=== PATIENT | male | born 1980 | race Caucasian/White ===

== ENCOUNTER 2023-03-19 10:44 | Emergency (ER) | payer SELFPAY ==
[2023-03-19 10:56] VITALS: BP 158/107; PULSE 80; RESP 20; TEMP 36.3; O2SAT 96
--- NOTE | 2023-03-19 11:18 | ED.GENADULT ---
HPI - General Adult General Chief complaint: Sore Throat Stated complaint: trouble breathing, swollen throat Time Seen by Provider: 03/19/23 11:01 History of Present Illness HPI narrative: Pt interpreting. Pt's reports early this AM around 0400, pt began c/o swelling in throat and sore throat. Pt stated she tried to get him to come to the ER but he did not want to at that time due to ETOH on board and being tired . Pt's states pt's throat appears red and swollen . 42-year-old man presenting to the emergency department complaint of sore throat. It hurts to swallow. Is able to manage secretions. Having trouble opening his mouth due to pain. He apparently woke very early this morning panicking with difficulty breathing; was particularly hard lay flat at that time. He had had number of drinks at that point. She had difficulty visualizing his throat at night but this morning some more swelling and redness was noted about the tonsils and was concerned. Has not had a fever. No rash. No particular exposures. He does not sound as though there was prodrome, fever, cough or cold symptoms. Related Data Previous Rx's Medication Instructions Recorded famotidine 20 mg tablet 20 mg PO BID #60 tabs 03/19/23 Allergies Allergy/AdvReac Type Severity Reaction Status Date / Time No Known Drug Allergies Allergy Verified 03/19/23 11:00 Review of Systems Status of ROS: Reports: 6 or more systems reviewed and unremarkable except as noted in History and below PFSH PFS Social History Smoking Status: Never smoker How often do you have a drink containing alcohol: 2-3 times a week How often do you have six or more drinks on one occasion: Never AUDIT-C Alcohol total score: 3 Non-prescribed substance use: denies use Exam Narrative: Exam Narrative: Pleasant. Seems a little distant or distracted. Cranial nerves 2-12 intact. GCS 15. Breathing easily. Speaking with somewhat clenched mouth. Carefully casually groomed. Looks for/hours actually. Oropharynx is moist. Little thick in the posterior oropharynx. Demonstrating trismus. With tongue depressor able to visualize moderately erythematous without exudate moderately enlarged tonsils right greater than left. Uvula seems somewhat boggy but not particularly large. A little longer. Partially septate. Is with full adenoids to palpation. Equivalent tenderness though he says. Neck otherwise is supple. Lungs are clear. There is no stridor. Heart is in regular rate and rhythm. Const: Vital Signs, click to edit/add: Vital Signs - 24 hr 03/19/23 10:56 03/19/23 11:26 03/19/23 11:52 Temperature 97.3 F L Pulse Rate [Right Pulse Oximeter] 80 81 Respiratory Rate 20 Blood Pressure [Ri ght Upper Arm] 158/107 H Pulse Oximetry 96 96 96 Oxygen Delivery Me thod Room Air Room Air Documenting provider has reviewed patient's vital signs: yes Course Vital Signs Vital signs: Initial Vital Signs Temperature 97.3 F L 03/19/23 10:56 Temperature Source Temporal Artery Scan 03/19/23 10:56 Pulse Rate 80 03/19/23 10:56 Respiratory Rate 20 03/19/23 10:56 Blood Pressure 158/107 H 03/19/23 10:56 Blood Pressure Mean 124 H 03/19/23 10:56 Blood Pressure Position Sitting 03/19/23 10:56 Pulse Oximetry 96 03/19/23 10:56 Oxygen Delivery Method Room Air 03/19/23 10:56 Vital Signs Temperature 97.3 F L 03/19/23 10:56 Pulse Rate 80 03/19/23 10:56 Respiratory Rate 20 03/19/23 10:56 Blood Pressure 158/107 H 03/19/23 10:56 Pulse Oximetry 96 03/19/23 10:56 Oxygen Delivery Method Room Air 03/19/23 10:56 Temperature 97.3 F L 03/19/23 10:56 Pulse Rate 74 03/19/23 13:11 Respiratory Rate 16 03/19/23 13:11 Blood Pressure 156/98 H 03/19/23 13:11 Pulse Oximetry 98 03/19/23 13:11 Oxygen Delivery Method Room Air 03/19/23 13:11 Medications Administered Medications: Discontinued Medications Generic Name Dose Route Start Last Admin Trade Name Freq PRN Reason Stop Dose Admin Sodium Chloride 1,000 mls @ 1,000 mls/hr 03/19/23 11:25 03/19/23 13:29 0.9 % Sodium Chloride 1000 Ml IV 03/19/23 12:24 Infused .Q1H ONE Infusion Medical Decision Making MDM Narrative Medical decision making narrative: Mild tonsillitis is evident. Affect may be affected yet by alcohol. I would treat as standard tonsillitis however demonstrated trismus is concerning. I think this warrants imaging. Will be arranging for contrasted neck CT. He does not feel needs any pain management at this time. Check also for strep and COVID. IV hydration. IV contrasted CT scan of soft tissue neck reviewed by me does not reveal any discrete abscesses or phlegmonous formation. Over-read by radiology as below INDICATION: Sore throat. TECHNIQUE: CT images acquired through the neck following intravenous contrast. COMPARISON: None. FINDINGS: Moderate diffuse enlargement of the palatine tonsils. No peritonsillar abscess. The parapharyngeal fat is preserved. No retropharyngeal edema or thickening of the epiglottis. Mild narrowing of the oropharyngeal airway. The nasopharynx, hypopharynx, and larynx are widely patent and without enhancing lesions. No enhancing lesions in the oral cavity or floor of mouth. The parotid and submandibular glands are unremarkable. Mildly enlarged bilateral level IIa lymph nodes demonstrate elongated morphology. The thyroid gland is unremarkable. Limited images through the brain without pathologic intracranial enhancement. The paranasal sinuses and mastoid air cells are clear. No aggressive osseous lesions. No concerning opacities in the visualized lungs. IMPRESSION 1. Moderate diffuse enlargement of the palatine tonsils is nonspecific, though may be reactive. There is mild narrowing of the oropharyngeal airway. No peritonsillar abscess. 2. Mildly enlarged bilateral level II lymph nodes are nonspecific, though demonstrate elongated morphology and are most likely reactive. Further questioning does reveal history of intermittent heartburn treated with Tums. He prefers to sleep rather flat in bed. Spouse does say that he does demonstrate which she would think might represent sleep apnea. Normal white count. Labs overall reassuring. I suspect that combination of alcohol, sleep apnea and possibly some nocturnal reflux is contribute to the findings here today. And still puzzled by the amount of trismus that was demonstrated I did discuss with ENT on-call. They have reviewed images and concur with assessment as above. I did give a singular dose of dexamethasone. He did receive a L of normal saline in the emergency department See patient discharge plan Lab Data Lab results reviewed: Yes I reviewed the patient's lab results Labs: Lab Results 03/19/23 03/19/23 Range/Units 11:40 12:11 WBC 7.07 (4.50-11.00) K/uL RBC 4.63 (4.30-5.90) m/uL Hgb 14.1 (13.5-17.5) gm/dL Hct 42.0 (37.0-53.0) % MCV 91 (80-100) fL MCH 31 (26-34) pg MCHC 34 (32-36) gm/dL RDW Coeff of Edgardo 12.4 (11.5-15.5) % Plt Count 299 (140-440) K/uL Neut % (Auto) 51.0 (42.0-72.0) % Lymph % (Auto) 36.8 (20-44) % [place] % (Auto) 8.6 (0.0-11.0) % Eos % (Auto) 3.1 (0.0-7.0) % Baso % (Auto) 0.4 (0.0-3.0) % Neut # (Auto) 3.60 (1.7-7.0) K/uL Lymph # (Auto) 2.60 (0.90-2.90) K/uL [place] # (Auto) 0.60 (0.00-0.90) K/UL Eos # (Auto) 0.22 (0.00-0.50) K/uL Baso # (Auto) 0.03 (0.00-0.30) K/uL Abs Immat Gran (auto) 0.01 (0.00-0.30) K/uL Imm/Tot Granulo (auto) 0.1 % Sodium 139 (135-149) mmol/L Potassium 4.0 (3.6-5.1) mmol/L Chloride 106 (96-114) mmol/L Carbon Dioxide 26 (20-32) mmol/L Anion Gap 7 (7-15) mEq/L BUN 15 (5-24) mg/dL Creatinine 0.9 (0.5-1.5) mg/dL Estimated Creat Clear 94.91 Estimated GFR 111 ml/min Glucose 109 (60-115) mg/dL Calcium 8.9 (8.4-10.6) mg/dL Ethyl Alcohol < 0.01 L (0.01-0.03) % SARS-CoV-2 (PCR) Negative SARS-CoV-2 (Negative) Group A Strep DNA NOT DETECTED (Not Detectd) Lab Acknowledgement Test Added Discharge Plan Discharge Clinical Impression: Sleep apnea, Esophageal reflux, Tonsillitis Patient Disposition: Home, Self-Care Condition: Improved Additional Instructions: Be careful about drinking too much alcohol particularly before bed. Try to sleep with head of bed elevated for now to decrease chance of heartburn/reflux. Take famotidine 20 mg twice a day or 40 mg before bed. This is to decrease acid in your stomach. You can purchase this in 20 mg tablets [id number]. Schedule follow-up for sleep study. Can do this through primary care provider or you might want to visit with Ear Nose and Throat physician. Today I spoke with Dr. Wong. Generally stay well hydrated with water. Tenga cuidado con el consumo excesivo de alcohol, especialmente antes de acostarse. Trate de dormir con la cabecera de la cama elevada por ahora para disminuir la posibilidad de acidez estomacal / reflujo. [place] famotidina 20 mg dos veces al d?a o 40 mg antes de acostarse. [place] es para disminuir el ?cido en el est?moisés. Puede comprarlo en tabletas de 20 mg sin receta. Programe el seguimiento para el estudio del pete?o. Puede hacer esto a sarahi?s de un proveedor de atenci?n primaria o es posible que desee visitar a un m?dico de o?do, nariz y garganta. Hoy habl? con el Dr. Wong. Por lo general, mant?ngase ingrid hidratado con agua. Prescriptions: New famotidine 20 mg tablet 20 mg PO BID Qty: 60 2RF Follow Up/Referrals: Provider,Not a Local [Primary Care Provider] - Stand Alone Forms: [facility]
--- NOTE | 2023-03-19 11:25 | CRLHL7_ITS ---
For Patients: As a result of the Century Cures Act, medical imaging exams and procedure reports are released immediately into your electronic medical record. You may view this report before your referring provider. If you have questions, please contact your health care provider. INDICATION: Sore throat. TECHNIQUE: CT images acquired through the neck following intravenous contrast. COMPARISON: None. FINDINGS: Moderate diffuse enlargement of the palatine tonsils. No peritonsillar abscess. The parapharyngeal fat is preserved. No retropharyngeal edema or thickening of the epiglottis. Mild narrowing of the oropharyngeal airway. The nasopharynx, hypopharynx, and larynx are widely patent and without enhancing lesions. No enhancing lesions in the oral cavity or floor of mouth. The parotid and submandibular glands are unremarkable. Mildly enlarged bilateral level IIa lymph nodes demonstrate elongated morphology. The thyroid gland is unremarkable. Limited images through the brain without pathologic intracranial enhancement. The paranasal sinuses and mastoid air cells are clear. No aggressive osseous lesions. No concerning opacities in the visualized lungs. IMPRESSION 1. Moderate diffuse enlargement of the palatine tonsils is nonspecific, though may be reactive. There is mild narrowing of the oropharyngeal airway. No peritonsillar abscess. 2. Mildly enlarged bilateral level II lymph nodes are nonspecific, though demonstrate elongated morphology and are most likely reactive. Please note that all CT scans at this facility use dose modulation, iterative reconstruction, and/or weight-based dosing when appropriate to reduce radiation dose to as low as reasonably achievable. Dictated by Junior Crooks MD @ 03/19/2023 12:29:56 PM (Electronically Signed)
[2023-03-19 11:26] VITALS: O2SAT 96
[2023-03-19 11:52] VITALS: PULSE 81; O2SAT 96
[2023-03-19 12:00] LABS: Basophils Absolute Auto 0.03 K/uL (0.00-0.30); Basophils Percent Auto 0.4 % (0.0-3.0); Eosinophils Absolute Auto 0.22 K/uL (0.00-0.50); Eosinophils Percent Auto 3.1 % (0.0-7.0); Hemoglobin* 14.1 gm/dL (13.5-17.5); Immature Granulocytes Abs Auto 0.01 K/uL (0.00-0.30); Immature Granulocytes Pct Auto 0.1 %; Lymphocytes Percent Auto 36.8 % (20-44); Mean Corpuscular HGB Conc 34 gm/dL (32-36); Mean Corpuscular Hemoglobin 31 pg (26-34); Mean Corpuscular Volume 91 fL (80-100); Monocytes Percent Auto 8.6 % (0.0-11.0); Platelet Count* 299 K/uL (140-440); RDW Coefficient of Variation % 12.4 % (11.5-15.5); Red Blood Count 4.63 m/uL (4.30-5.90); Slide Review Reflex No; White Blood Count* 7.07 K/uL (4.50-11.00)
[2023-03-19 12:14] LABS: Chloride* 106 mmol/L (96-114)
[2023-03-19 12:15] LABS: Sodium* 139 mmol/L (135-149)
[2023-03-19 12:17] LABS: Creatinine* 0.9 mg/dL (0.5-1.5); Est. Creatinine Clearance* 94.91; Estimated Glomerular Filt Rate 111 ml/min
[2023-03-19 12:18] LABS: Anion Gap 7 mEq/L (7-15); Blood Urea Nitrogen* 15 mg/dL (5-24); Calcium* 8.9 mg/dL (8.4-10.6); Carbon Dioxide* 26 mmol/L (20-32); Glucose* 109 mg/dL (60-115)
[2023-03-19 12:20] LABS: Ethanol* < 0.01 % (0.01-0.03)
[2023-03-19] MEDS: 0.9 % SODIUM CHLORIDE 1000 ml 1,000 ML IV (12:24)
[2023-03-19 13:10] LABS: SARS PCR* Negative SARS-CoV-2 (Negative); Strep A DNA Probe* NOT DETECTED (Not Detectd)
[2023-03-19 13:11] VITALS: BP 156/98; PULSE 74; RESP 16; O2SAT 98
== END 2023-03-19 14:02 | disposition home or self-care (01) ==
PROVIDERS: Emergency Provider Family Medicine
DX: K21.9 Gastro-esophageal reflux disease without esophagitis (principal); J03.90 Acute tonsillitis, unspecified; G47.30 Sleep apnea, unspecified
CPT/HCPCS: 36415; 70491; 80048; 82077; 85025; 87635; 87651; 94761; 99284; J7030; Q9967